=== PATIENT | female | born 1965 | race Caucasian/White ===

== ENCOUNTER 2017-03-20 11:56 | Inpatient (IN) | payer OTHER ==
[2017-03-20 13:00] LABS: % IMMATURE GRANULYOCYTES 0.2 % (0.0-1.1); ABSOLUTE IMMATURE GRANULOCYTES 0.01 10^3/uL (0.00-0.10); ADD DIFF? NO; ADD MORPH? NO; ADD SCAN? NO; ATYPICAL LYMPHOCYTE FLAG 0 (0-99); FRAGMENT RBC FLAG 0 (0-99); HEMATOCRIT 46.8 % (38.0-47.0); HEMOGLOBIN 16.1 g/dL (12.6-16.3); LEFT SHIFT FLG 0 (0-99); LIPEMIA HEMOLYSIS FLAG 90 (0-99); MEAN CELL HEMOGLOBIN 33.1 pg (27.9-34.1); MEAN CELL HEMOGLOBIN CONCENTR. 34.4 g/dL (32.4-36.7); MEAN CELL VOLUME 96.1 fL (81.5-99.8); PLATELET CLUMPS FLAG 0 (0-99); PLATELET COUNT 234 10^3/uL (150-400); RED BLOOD CELL COUNT 4.87 10^6/uL (4.18-5.33); RED CELL DISTRIBUTION WIDTH 11.2 % (11.5-15.2)
[2017-03-20 13:07] LABS: ANION GAP 16 mEq/L (8-16); CALCIUM 9.8 mg/dL (8.5-10.4); CARBON DIOXIDE 27 mEq/l (22-31); CHLORIDE 101 mEq/L (97-110); CREATININE 0.6 mg/dL (0.6-1.0); GLOMERULAR FILTRATION RATE > 60; GLUCOSE 140 mg/dL (70-100); POTASSIUM 4.2 mEq/L (3.5-5.2); SODIUM 144 mEq/L (134-144)
[2017-03-20 14:01] LABS: ETHANOL SERUM 113 mg/dL (0-10)
[2017-03-20] MEDS ORDERED: IBUPROFEN 600 MG TAB PO ONE (15:20)
--- NOTE | 2017-03-20 15:43 | EDPHY ---
H & P Stated Complaint: depression, SI, no plan - Personal History LMP (Females 10-55): Hysterectomy Current Tetanus/Diphtheria Vaccine: Yes Current Tetanus Diphtheria and Acellular Pertussis (TDAP): Yes - Medical/Surgical History Hx Asthma: No Hx Chronic Respiratory Disease: No Hx Diabetes: No Hx Cardiac Disease: No Hx Renal Disease: No Hx Cirrhosis: No Hx Alcoholism: No Hx HIV/AIDS: No Hx Splenectomy or Spleen Trauma: No Other PMH: pmh: psh: hyst, lap - Social History Smoking Status: Never smoked HPI/ROS: Chief complaint: Depression History of present illness: This is a 52-year-old female who presents to the emergency department for depression. Patient reports she has been under significant stress lately. She has been treated with Wellbutrin for years for depression. She feels it is no longer treating her appropriately. She feels her depression is worsening. When asked if she has suicidal ideation she states yesterday she wondered what it would be like if she just did not exist. A friend who is at bedside voiced concern that patient asked her to remove the gun from her house today. Patient denies homicidal ideation. She denies illness or injury. Review of systems: A 10 point review of systems was obtained and other than described above was negative (Chencho Davies) - Physical Exam Exam: General Appearance: Alert, nontoxic. Eyes: Pupils equal and round no pallor or injection. ENT, Mouth: Mucous membranes moist. Respiratory: There are no retractions, lungs are clear to auscultation. Cardiovascular: Regular rate and rhythm. Gastrointestinal: Abdomen is soft and nontender, no masses, bowel sounds normal. Neurological: Alert. Strength and sensation intact and symmetrical. Skin: Warm and dry, no rashes. Musculoskeletal: Neck is supple nontender. Extremities are symmetrical, full range of motion. Psychiatric: Patient is tearful. (Chencho Davies) Constitutional: Initial Vital Signs Temperature (C) 36.5 C 03/20/17 12:06 Heart Rate 104 H 03/20/17 12:06 Respiratory Rate 16 03/20/17 12:06 Blood Pressure 145/96 H 03/20/17 12:06 O2 Sat (%) 93 03/20/17 12:06 O2 Delivery Mode Room Air Allergies/Adverse Reactions: No Known Allergies Allergy (Verified 03/20/17 17:46) Home Medications: Medication Instructions Recorded Aspirin EC [Aspirin EC 81 mg (*)] 81 mg PO DAILY 03/20/17 Herbals/Supplements -Info Only 1 ea PO DAILY 03/20/17 Multivitamins [Multivitamin (*)] 1 each PO DAILY 03/20/17 buPROPion XL [Wellbutrin Xl] 150 mg PO DAILY 03/20/17 Medical Decision Making ED Course/Re-evaluation: Patient seen under the supervision of my secondary supervising physician Dr. Jack Hanna. Patient presents to the emergency department for worsening depression. I believe she is alluding to thoughts of suicide. She is nontoxic. She is medically evaluated and cleared for psychiatric evaluation. This has occurred and psych believes patient warrants inpatient admission. She is placed on a mental health hold. Placement is pending. Care of patient is turned over Dr. Dr. Jack Hanna at end of shift. (Chencho Davies) I did not see this patient while she was in the emergency department. However her care was discussed with the PA while the patient was in the department. I agree with treatment plan and management (Jack Hanna) Differential Diagnosis: Included but not limited anxiety, depression, bipolar, substance abuse (Chencho Davies) - Data Points Laboratory Results: Laboratory Results 03/20/17 12:30 03/20/17 12:30 03/20/17 03/20/17 03/20/17 12:45 12:30 12:30 WBC RBC Hgb Hct MCV MCH MCHC RDW Plt Count MPV Neut % (Auto) Lymph % (Auto) Harney % (Auto) Eos % (Auto) Baso % (Auto) Nucleat RBC Rel Count Absolute Neuts (auto) Absolute Lymphs (auto) Absolute Monos (auto) Absolute Eos (auto) Absolute Basos (auto) Absolute Nucleated RBC Immature Gran % Immature Gran # Turbidity Cancelled Sodium Cancelled Potassium Cancelled Chloride Cancelled Carbon Dioxide Cancelled Anion Gap Cancelled BUN Cancelled Creatinine Cancelled Estimated GFR Cancelled Glucose Cancelled Calcium Cancelled Beta HCG, Qual NEGATIVE Urine Opiates Screen NEGATIVE (NEGATIVE) Urine Barbiturates NEGATIVE (NEGATIVE) Ur Phencyclidine Scrn NEGATIVE (NEGATIVE) Ur Amphetamine Screen NEGATIVE (NEGATIVE) U Benzodiazepines Scrn NEGATIVE (NEGATIVE) Urine Cocaine Screen NEGATIVE (NEGATIVE) U Marijuana (THC) Screen NEGATIVE (NEGATIVE) Ethyl Alcohol 113 mg/dL H mg/dL (0-10) 03/20/17 03/20/17 12:30 12:30 WBC 4.82 10^3/uL 10^3/uL (3.80-9.50) RBC 4.87 10^6/uL 10^6/uL (4.18-5.33) Hgb 16.1 g/dL g/dL (12.6-16.3) Hct 46.8 % % (38.0-47.0) MCV 96.1 fL fL (81.5-99.8) MCH 33.1 pg pg (27.9-34.1) MCHC 34.4 g/dL g/dL (32.4-36.7) RDW 11.2 % L % (11.5-15.2) Plt Count 234 10^3/uL 10^3/uL (150-400) MPV 9.0 fL fL (8.7-11.7) Neut % (Auto) 63.3 % % (39.3-74.2) Lymph % (Auto) 29.5 % % (15.0-45.0) Harney % (Auto) 5.4 % % (4.5-13.0) Eos % (Auto) 0.8 % % (0.6-7.6) Baso % (Auto) 0.8 % % (0.3-1.7) Nucleat RBC Rel Count 0.0 % % (0.0-0.2) Absolute Neuts (auto) 3.05 10^3/uL 10^3/uL (1.70-6.50) Absolute Lymphs (auto) 1.42 10^3/uL 10^3/uL (1.00-3.00) Absolute Monos (auto) 0.26 10^3/uL L 10^3/uL (0.30-0.80) Absolute Eos (auto) 0.04 10^3/uL 10^3/uL (0.03-0.40) Absolute Basos (auto) 0.04 10^3/uL 10^3/uL (0.02-0.10) Absolute Nucleated RBC 0.00 10^3/uL 10^3/uL (0-0.01) Immature Gran % 0.2 % % (0.0-1.1) Immature Gran # 0.01 10^3/uL 10^3/uL (0.00-0.10) Turbidity Sodium 144 mEq/L mEq/L (134-144) Potassium 4.2 mEq/L mEq/L (3.5-5.2) Chloride 101 mEq/L mEq/L (97-110) Carbon Dioxide 27 mEq/l mEq/l (22-31) Anion Gap 16 mEq/L mEq/L (8-16) BUN 12 mg/dL mg/dL (7-23) Creatinine 0.6 mg/dL mg/dL (0.6-1.0) Estimated GFR > 60 Glucose 140 mg/dL H mg/dL (70-100) Calcium 9.8 mg/dL mg/dL (8.5-10.4) Beta HCG, Qual Urine Opiates Screen Urine Barbiturates Ur Phencyclidine Scrn Ur Amphetamine Screen U Benzodiazepines Scrn Urine Cocaine Screen U Marijuana (THC) Screen Ethyl Alcohol Departure - Departure Disposition: [facility] IP Clinical Impression: Depression Qualifiers: Depression Type: unspecified Qualified Code(s): F32.9 - Major depressive disorder, single episode, unspecified Condition: Good
[2017-03-20] MEDS ORDERED: NICOTINE POLACRILEX 2 MG GUM B PRN (20:50)
[2017-03-20] MEDS ORDERED: MAG HYDROX/AL HYDROX/SIMETH 30 ML UDCUP PO PRN (20:50)
[2017-03-20] MEDS ORDERED: MAGNESIUM HYDROXIDE 30 ML UDCUP PO PRN (20:50)
[2017-03-20] MEDS ORDERED: OLANZapine DISINTEGR 10 MG TAB PO PRN (20:50)
[2017-03-20] MEDS: ACETAMINOPHEN 325 MG TAB PO PRN (21:00)
[2017-03-20] MEDS: LORazepam 0.5 MG TAB PO PRN (21:10)
[2017-03-21] MEDS: ACETAMINOPHEN 325 MG TAB PO PRN ×2 (08:39→13:10)
[2017-03-21] MEDS: LORazepam 0.5 MG TAB PO PRN ×2 (08:40→16:04)
[2017-03-21] MEDS: ASPIRIN EC 81 MG TAB PO SCH (08:40)
[2017-03-21] MEDS: buPROPion XL 150 MG TAB PO SCH (13:02)
[2017-03-21] MEDS: GABAPENTIN 300 MG CAP PO SCH ×3 (13:02→20:46)
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
--- NOTE | 2017-03-21 21:48 | BCON ---
[f rep st] BEHAVIORAL HEALTH CONSULTATION INTERNAL MEDICINE CONSULTATION DATE OF CONSULTATION: 03/21/2017 REFERRING PHYSICIAN: Luiz Gonzalez MD REASON FOR CONSULTATION: Medical clearance for inpatient behavioral health stay. HISTORY OF PRESENT ILLNESS: The patient was brought to the emergency department by her ex-. She had asked a neighbor to take her gun because she was feeling depressed and did not feel safe. Neighbor contacted ex- per notes available in the chart. She was evaluated by the [facility] team and admitted for further psychiatric care. She currently is without any medical complaints. PAST MEDICAL HISTORY: 1. Dyslipidemia. 2. Possible hemochromatosis. 3. Depression. PAST SURGICAL HISTORY: She has had a hysterectomy. MEDICATIONS: Prior to admission. 1. Aspirin 81 mg p.o. q. day. 2. Multivitamin 1 p.o. q. day. 3. Red yeast rice 2 a day. 4. Bupropion XL 150 mg p.o. q. day. ALLERGIES: There are no known drug allergies. SOCIAL HISTORY: She is . She has 2 children. She lives alone. 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 She is a nonsmoker. She uses alcohol. FAMILY HISTORY: There is a large family history of alcoholism. REVIEW OF SYSTEMS: She specifically denies symptoms of alcohol withdrawal, including no sweats and no shakes. She denies fevers, chills, cough, dyspnea, weight change, chest pain, palpitations, naus ea, vomiting, constipation or diarrhea, and otherwise a 10-point Review of Systems is negative. PHYSICAL EXAM: VITAL SIGNS: Blood pressure is 134/91. When she first presented, it was elevated a t 145/96, and then yesterday evening it was very high at 179/115. At that time, her pulse was also 107. Her pulse currently is 89. Respiratory rate is 12. Oxygen saturation is 96% on room air. Te mperature is 36.8 degrees centigrade. Her weight is 68 kg for a body mass index of 23.5. GENERAL: This is an overweight-appearing woman, who appears her chronologic age. Cooperative and in no acut e distress. HEENT: Extraocular movements are intact. Pupils are equally round and reactive to lig ht. Mucous membranes are moist. Dentition is in good condition. Airway is uncrowded, Mallampati c lass 2. NECK: Supple. HEART: There is a regular rate and rhythm with no murmurs, rubs, or gallop s. LUNGS: Clear to auscultation bilaterally. ABDOMEN: Soft, nontender, nondistended with normoac tive bowel sounds. EXTREMITIES: There is no cyanosis, clubbing, or edema. NEUROLOGIC: She is jacobo rt and oriented x3. Cranial nerves 2-12 are grossly intact. There is no focal weakness. Sensation is intact to light touch. There is no tremor. Gait is within normal limits. LABORATORY STUDIES: Drawn in the emergency department. CBC was overall within normal limits. She did not have an elevated red blood cell mass or hemoglobin or hematocrit, though hemoglobin and yen tocrit were close to the upper limits of normal for a woman. Serum chemistry revealed normal renal function and electrolytes. Glucose was high at 140 but this was likely not fasting. Beta hCG was n egative for . Toxicology screen in the serum revealed an elevated ethyl alcohol level at 1 13 mg/dL. Toxicology screen in the urine was negative for any substances of abuse. ASSESSMENT/RECOMMENDATIONS: 1. Depression. Pending further evaluation and management per Psychiatry and the mental health team . 2. Alcohol abuse. Possible alcohol dependence. She is not currently showing any signs or symptoms of alcohol withdrawal but her elevated blood pressure and pulse yesterday evening may have been due to alcohol withdrawal. 3. Dyslipidemia. She reports this was diagnosed by her primary care provider, who prescribed her r ed yeast rice extract and put her on a daily aspirin. Aspirin has been continued and this is most l ikely appropriate. 4. Possible hemochromatosis. She reports this is being evaluated by her primary care provider, and she can follow up after her discharge. 5. I see no medical contraindications to the patient's continued stay on the inpatient [facility] unit or to any psychiatric medications or procedures. Thank you very much for including me in the care of this patient and please do not hesitate to conta ct me or the hospitalist service should there be need for further medical evaluation. /[id number]/MODL
[2017-03-22] MEDS: ACETAMINOPHEN 325 MG TAB PO PRN (04:35)
[2017-03-22] MEDS: LORazepam 0.5 MG TAB PO PRN (04:35)
[2017-03-22 04:51] VITALS: RESP 12
[2017-03-22] MEDS: buPROPion XL 150 MG TAB PO SCH (08:15)
[2017-03-22] MEDS: ASPIRIN EC 81 MG TAB PO SCH (08:16)
[2017-03-22] MEDS: GABAPENTIN 300 MG CAP PO SCH (08:16)
[2017-03-22 08:56] VITALS: PULSE 82; TEMP 98.3
[2017-03-22 09:03] VITALS: BP 133/80; O2SAT 96
--- NOTE | 2017-03-24 13:22 | BDS ---
[f rep st] BEHAVIORAL HEALTH DISCHARGE SUMMARY REASON FOR ADMISSION: Patient is a 52-year-old female with a history of depression, anxie ty, and alcohol dependence. She was brought to the hospital by her after her family grew co ncerned about her well-being. She had spent 3 days in bed drinking heavily and refusing to interact with others. She also had made statements about "wanting all this to end." She was brought to the hospital for evaluation, was placed on an M1 hold, admitted for further evaluation. A full descrip tion of the events preceding admission can be found in her admission history dated 03/21/2017. ADMITTING DIAGNOSES: 1. Major depressive disorder, recurrent, severe, without psychosis. 2. Alcohol use disorder, severe, and family stress. ADMITTING PHYSICAL EXAMINATION: Performed by Dr. Justin Dorsey, showed the possibility of hemochr omatosis. Otherwise, unremarkable. ADMISSION LABORATORY: CBC was normal. Serum chemistries were normal. Nonfasting glucose was up at 140. Urine drug screen was negative for all substances, and alcohol on admission at 12:00 was 113. HOSPITAL COURSE: Patient admitted to the [facility] inpatient unit on an M1 hold. Curtis shepherd was placed on a CIWA protocol to monitor for any alcohol withdrawal, and showed stable vital signs and no subjective or objective symptoms of withdrawal throughout her stay. She was given some p.r. n. Ativan for anxiety, but this was sparingly. I sat and reviewed with her, her medications for dep ression that she had been taking for some time. She had taken Wellbutrin for more than 3 years at 1 50 mg a day. She felt like this was ineffective, and I reviewed with her the standard dosing recomm endations for that medication. She is agreeable to titration to 300 mg, and this was done without i ncident. We also reviewed the possible use of other medications for assisting with short-term sobri ety. She had read up on this and was knowledgeable about naltrexone and gabapentin. She preferred a trial of gabapentin, because her daughter is successfully taking it right now also for alcohol abs tinence. We started this at 300 t.i.d., and she tolerated it well with no side effects. In fact, s he stated that she had not felt so calm in many years, after only the first day of use of the gabape ntin. The patient was bright and engaging throughout her stay. She participated actively in all therapies . She was compliant and appropriate at all times. She adamantly denied any thoughts of suicide fro m the beginning of her stay. She stated that she was simply frustrated with her lifestyle and the r epetitive pattern of her alcohol use. I reviewed with her the standard addiction cycle and ways brenda t she might be able to break that with her cuing occurring around 4 p.m. and being played out throug h some rather stereotyped behaviors. She stated that she wanted to see a psychiatrist and follow up with therapist, and these arrangements were made. CONDITION ON DISCHARGE: Stable. Patient was tolerating medication adjustment and the new medicatio n well, was having no thoughts of suicide, and was demonstrating a full and bright affect. She was reporting no suicidal ideation. DISCHARGE MEDICATIONS: Wellbutrin XL 300 mg daily, Neurontin 300 mg t.i.d., aspirin 81 mg daily, an d a multivitamin. DISCHARGE DIAGNOSES: 1. Major depressive disorder, recurrent, severe, without psychosis. 2. Alcohol use disorder, severe. DISPOSITION: Patient left the hospital, with her ex-, to return home. FOLLOWUP: With Dr. Huggins on 03/24/2017, and with the therapist the following week. LEGAL COURSE: The patient was discharged prior to the expiration of her M1 hold. /[id number]/MODL
== END 2017-03-22 12:25 | disposition home or self-care (01) | DRG 885 ==
LOC: BBEH 18:45
PROVIDERS: ADMIT Psychiatry & Neurology Psychiatry; ATTEND Psychiatry & Neurology Psychiatry
DX: F33.2 Major depressive disorder, recurrent severe without psychotic features (principal); F10.20 Alcohol dependence, uncomplicated; E78.5 Hyperlipidemia, unspecified
CPT/HCPCS: 80305; G0480